=== PATIENT | male | born 1990 | race Caucasian/White ===

== ENCOUNTER 2018-09-17 08:03 | Emergency (ER) | payer MEDICAID, OTHER ==
[~2018-09-17] VITALS: Ht 167.6 cm; Wt 58.5 kg
[2018-09-17 08:04] VITALS: Ht 167.6 cm; Wt 58.5 kg
[2018-09-17] MEDS ORDERED: KETOROLAC 30 MG INJ IV STA (08:26)
[2018-09-17] MEDS ORDERED: SOD CHLORIDE 0.9% 1,000 ML IV STA (08:26)
[2018-09-17] MEDS ORDERED: ONDANSETRON 4 MG INJ IV STA (08:26)
[2018-09-17] MEDS ORDERED: IBUP-1542 PO (11:11)
[2018-09-17] MEDS ORDERED: TAMS-14 PO (11:11)
[2018-09-17] MEDS ORDERED: ONDA4TAB14 PO (11:11)
[2018-09-17] MEDS ORDERED: NALO4SPR NS (11:12)
[2018-09-17] MEDS ORDERED: HYDR-4011 PO (11:13)
[2018-09-17 11:35] VITALS: BP 100/59; PULSE 77; RESP 18
--- NOTE | 2018-09-17 16:46 | ERD ---
ER Documentation Chief Complaint Chief Complaint AP THIS AM WITH DYSURIA. HPI Patient is a 27-year-old male who presents the ER for concerns of right-sided flank pain which started around 5:30 AM this morning. Patient states since that time he has had 2-3 episodes of hematuria. Patient states the pain is now radiating into his right lower abdomen. Patient denies any nausea, vomiting fevers or chills. Patient states pain comes and goes and is sharp. Patient denies any falls or trauma. Patient denies any chest pain or shortness of breath. No recent travel. No sick contacts. ROS All systems reviewed and are negative except as per history of present illness. Medications Home Meds Active Scripts Hydrocodone/Acetaminophen ([place] 5-325 Tablet) 1 Each Tablet, 1 TAB PO Q6H PRN for PAIN, #7 TAB Prov:RADHA SCHULTZ PA-C 09/17/18 Naloxone HCl (Narcan) 4 Mg [place], 4 MG NS as directed, #1 SPRAY Prov:RADHA SCHULTZ PA-C 09/17/18 Tamsulosin Hcl* (Flomax*) 0.4 Mg Cap.er.24h, 0.4 MG PO DAILY, #10 CAP Prov:RADHA SCHULTZ PA-C 09/17/18 Ondansetron (Ondansetron Odt) 4 Mg Tab.rapdis, 4 MG PO Q6H PRN for NAUSEA AND/OR VOMITING, #10 TAB Prov:RADHA SCHULTZ PA-C 09/17/18 Ibuprofen* (Motrin*) 600 Mg Tab, 600 MG PO Q6, #30 TAB Prov:RADHA SCHULTZ PA-C 09/17/18 Allergies Allergies: Coded Allergies: No Known Allergy (Unverified , 09/17/18) PMhx/Soc Medical and Surgical Hx: pt denies Medical Hx, pt denies Surgical Hx Hx Alcohol Use: No Hx Substance Use: No Hx Tobacco Use: No Smoking Status: Never smoker FmHx Family History: No diabetes Physical Exam Vitals Vital Signs Date Temp Pulse Resp B/P (MAP) Pulse Ox O2 O2 Flow FiO2 Time Delivery Rate 09/17/18 77 18 100/59 Room Air 11:35 (73) 09/17/18 96.4 85 17 98/51 (67) 100 08:04 Physical Exam GENERAL: Well-developed, well-nourished male. Appears uncomfortable. HEAD: Normocephalic, atraumatic. EYES: Pupils are equally reactive bilaterally. EOMs grossly intact. No c onjunctival erythema. ENT: Moist mucous membranes. No uvula deviation. No kissing tonsils. NECK: Supple. No meningismus. Normal range of motion of the neck. LUNG: Clear to auscultation bilaterally. No rhonchi, wheezing, rales or coarse breath sounds. HEART: Regular rate and rhythm. No murmurs, rubs or gallops. ABDOMEN: No scars, ecchymosis or rashes noted. Soft, and nondistended. + RLQ pain. Positive bowel sounds in all four quadrants. No rebound tenderness, no guarding. (-) McBurney's point tenderness. R CVA tenderness. BACK: No midline tenderness. EXTREMITIES: Equal pulses bilaterally. No peripheral clubbing, cyanosis or edema. No unilateral leg swelling. NEUROLOGIC: Alert and oriented. Moving all four extremities without any difficulty. Normal speech. Steady gait. SKIN: Normal color. Warm and dry. No rashes or lesions. Result Diagram: 09/17/18 0857 09/17/18 0857 Results 24 hrs Laboratory Tests Test 09/17/18 08:57 White Blood Count 8.8 10^3/ul Red Blood Count 4.61 10^6/ul Hemoglobin 13.9 g/dl Hematocrit 40.9 % Mean Corpuscular Volume 88.7 fl Mean Corpuscular Hemoglobin 30.2 pg Mean Corpuscular Hemoglobin Concent 34.0 g/dl Red Cell Distribution Width 12.6 % Platelet Count 235 10^3/UL Mean Platelet Volume 11.0 fl Immature Granulocytes % 0.300 % Neutrophils % 71.2 % Lymphocytes % 23.8 % Monocytes % 3.8 % Eosinophils % 0.6 % Basophils % 0.3 % Nucleated Red Blood Cells % 0.0 /100WBC Immature Granulocytes # 0.030 10^3/ul Neutrophils # 6.3 10^3/ul Lymphocytes # 2.1 10^3/ul Monocytes # 0.3 10^3/ul Eosinophils # 0.1 10^3/ul Basophils # 0.0 10^3/ul Nucleated Red Blood Cells # 0.0 10^3/ul Urine Color YELLOW Urine Clarity SLIGHTLY CLOUDY Urine pH 6.0 Urine Specific [place] 1.010 Urine Ketones NEGATIVE mg/dL Urine Nitrite NEGATIVE mg/dL Urine Bilirubin NEGATIVE mg/dL Urine Urobilinogen NEGATIVE mg/dL Urine Leukocyte Esterase NEGATIVE Jennifer/ul Urine Microscopic RBC > 182 /HPF Urine Microscopic WBC 5 /HPF Urine Bacteria FEW /HPF Urine Mucus FEW /HPF Urine Hemoglobin 3+ mg/dL Urine Glucose NEGATIVE mg/dL Urine Total Protein 1+ mg/dl Sodium Level 140 mmol/L Potassium Level 4.3 mmol/L Chloride Level 99 mmol/L Carbon Dioxide Level 30 mmol/L Anion Gap 11 Blood Urea Nitrogen 16 mg/dl Creatinine 0.80 mg/dl Est Glomerular Filtrat Rate mL/min > 60 mL/min Glucose Level 111 mg/dl Calcium Level 9.8 mg/dl Total Bilirubin 0.3 mg/dl Direct Bilirubin 0.00 mg/dl Indirect Bilirubin 0.3 mg/dl Aspartate Amino Transf (AST/SGOT) 19 IU/L Alanine Aminotransferase (ALT/SGPT) 16 IU/L Alkaline Phosphatase 49 IU/L Total Protein 8.4 g/dl Albumin 5.0 g/dl Globulin 3.40 g/dl Albumin/Globulin Ratio 1.47 Lipase 67 U/L Current Medications Medications Dose Sig/Gabino Start Time Status Last (Trade) Ordered Route PRN Stop Time Admin Dose Reason Admin Sodium 1,000 ml @ Q1H STAT 09/17/18 DC 09/17/18 Chloride 1,000 mls/hr IV 08:26 08:59 09/17/18 09:25 Ondansetron 4 mg ONCE STAT 09/17/18 DC 09/17/18 HCl (Zofran IV 08:26 09:00 Inj) 09/17/18 08:28 Ketorolac 30 mg ONCE STAT 09/17/18 DC 09/17/18 Tromethamine IV 08:26 08:59 (Toradol) 09/17/18 08:28 Procedures/MDM ED COURSE: The patient was stable throughout ED course. I kept the patient and/or family informed of laboratory and diagnostic imaging results throughout the ED course. DIAGNOSTIC IMAGING: Read by radiologist. DIAGNOSTIC IMAGING REPORT Patient: KODY COLLINS : 1990 Age: 27 Sex: M MR #: [id number] DOS: 09/17/18825 Ordering MD: RADHA SCHULTZ PA-C Location: [facility] Room/Bed: PROCEDURE: CT Abdomen and Pelvis without contrast. CLINICAL INDICATION: Right flank pain TECHNIQUE: CT scan of the abdomen and pelvis without contrast was performed on a multi-detector high-resolution CT scanner. No intravenous contrast was administered. Coronal and sagittal reformatted images were obtained from the axial source images. The total exam CTDI equals 7 mGy and the total exam DLP equals 355 mGy-cm. DICOM images are available. One or more of the following dose reduction techniques were utilized: 1.) Automated exposure control 2.) Adjustment of the mA +/- kV according to patient's size 3.) Use of iterative reconstruction technique. COMPARISON: None. FINDINGS: Imaged portions of the chest are unremarkable. The liver, pancreas, and spleen are unremarkable. The gallbladder is within normal limits. No adrenal nodules are seen. There is mild right-sided hydronephrosis secondary to a 2 mm calculus in the proximal ureter. The pelvic organs are unremarkable. There is no evidence for bowel obstruction. The appendix is normal in caliber. There is no ascites. There is no intra-abdominal free air. There is no mesenteric, retroperitoneal or pelvic sidewall lymphadenopathy. The abdominal aorta is normal in caliber. Visualized osseous structures are intact. IMPRESSION: Mild right-sided hydronephrosis secondary to a 2 mm calculus within the proximal ureter. RPTAT: HAP Admit-r Fidel Physician Date Time Electronically viewed and signed by Lee Ann Parra, Physician on 09/17/2018 09:01 AP/ CC: RADHA SCHULTZ PA-C [id number] PROCEDURES: None. MEDICATIONS GIVEN: IV fluids, Zofran, Toradol Patient tolerated medication well with no adverse reactions. Patient reported improvement in pain. MEDICAL DECISION MAKING: This is a 27-year-old male who presents with right-sided flank pain as well as hematuria which started earlier this morning. Vital signs were reviewed. Patient was afebrile. UA showed positive RBCs and 3+ blood. CBC showed no evidence of severe anemia or systemic infection. CMP showed no severe electrolyte abnormalities, acidosis, alkalosis, renal failure or liver injury. Lipase is negative for acute pancreatitis. CT imaging of the abdomen and pelvis showed mild right-sided hydronephrosis secondary to a 2 mm calculus in the proximal ureter. Patient was given IV fluids, Toradol and Zofran. Upon reexam ination, patient reported improvement in symptoms. At this time, patient presentation was consistent with nephrolithiasis. Patient was advised to drink plenty fluids and follow-up with urologist on outpatient basis. Patient will likely pass this stone spontaneously. Low suspicion for pyelonephritis, appendicitis, diverticulitis, constipation, urethritis, prostatitis, epididymitis, testicular torsion, obstruction, diverticulitis. Patient was nontoxic, non-opening prior to discharge. PRESCRIPTIONS: Ibuprofen, Zofran, Flomax, [place]. Given the [place] was given patient was also given a prescription for Narcan. Patient was educated on the addictive properties of opioid medication advised to only take [place] for his pain is severe. Patient understood and was agreeable with this plan. DISCHARGE: At this time, patient is stable for discharge and outpatient management. I have instructed the patient to follow-up with his/her primary care physician in 1-2 days. If symptoms persist, patient may need to see a specialist for further examinations and testing. I have instructed the patient to promptly return to the ER at any time for any new or worsening symptoms including increased increa sed pain, fever, nausea, vomiting, urinary changes or weakness. The patient and/or family expressed understanding of and agreement with this plan. All questions were answered. Home care instructions were provided. Disclaimer: Inadvertent spelling and grammatical errors are likely due to EHR/dictation software use and do not reflect on the overall quality of patient care. Also, please note that the electronic time recorded on this note does not necessarily reflect the actual time of the patient encounter. Departure Diagnosis: Primary Impression: Nephrolithiasis Condition: Stable Patient Instructions: Kidney Stone W/ Colic Referrals: NIRAV NICOLE MD [facility] YOU HAVE RECEIVED A MEDICAL SCREENING EXAM AND THE RESULTS INDICATE THAT YOU DO NOT HAVE A CONDITION THAT REQUIRES URGENT TREATMENT IN THE EMERGENCY DEPARTMENT. FURTHER EVALUATION AND TREATMENT OF YOUR CONDITION CAN WAIT UNTIL YOU ARE SEEN IN YOUR DOCTORS OFFICE WITHIN THE NEXT 1-2 DAYS. IT IS YOUR RESPONSIBILITY TO MAKE AN APPOINTMENT FOR FOLOW-UP CARE. IF YOU HAVE A PRIMARY DOCTOR --you should call your primary doctor and schedule an appointment IF YOU DO NOT HAVE A PRIMARY DOCTOR YOU CAN CALL OUR PHYSICIAN REFERRAL HOTLINE AT IF YOU CAN NOT AFFORD TO SEE A PHYSICIAN YOU CAN CHOSE FROM THE FOLLOWING [facility] [address] [facility] [address] [facility] [address] [facility] [address] [facility] [address] [facility]. [facility] [address] [facility]. [facility] YOU HAVE RECEIVED A MEDICAL SCREENING EXAM AND THE RESULTS INDICATE THAT YOU DO NOT HAVE A CONDITION THAT REQUIRES URGENT TREATMENT IN THE EMERGENCY DEPARTMENT. FURTHER EVALUATION AND TREATMENT OF YOUR CONDITION CAN WAIT UNTIL YOU ARE SEEN IN YOUR DOCTORS OFFICE WITHIN THE NEXT 1-2 DAYS. IT IS YOUR RESPONSIBILITY TO MAKE AN APPOINTMENT FOR FOLOW-UP CARE. IF YOU HAVE A PRIMARY DOCTOR --you should call your primary doctor and schedule and appointment IF YOU DO NOT HAVE A PRIMARY DOCTOR YOU CAN CALL OUR PHYSICIAN REFERRAL HOTLINE AT . IF YOU CAN NOT AFFORD TO SEE A PHYSICIAN YOU CAN CHOSE FROM THE FOLLOWING [facility]: [facility] [address] [place] [address] [facility] [address] [place] [address] [facility] [address] [place] [address] Additional Instructions: Call your primary care doctor TOMORROW for an appointment during the next 1-2 days.See the doctor sooner or return here if your condition worsens before your appointment time. RADHA SCHULTZ PA-C Sep 17, 2018 16:46
== END 2018-09-17 11:37 | disposition home or self-care (01) ==
LOC: FTE 08:03
DX: N20.0 Calculus of kidney (principal)
CPT/HCPCS: 36415; 74176; 80053; 81001; 83690; 85025; 96361; 96374; 96375; J1885; J7030; Z7502